=== PATIENT | male | born 2000 | race Caucasian/White ===

== ENCOUNTER 2025-07-20 14:19 | Emergency (ER) | payer SELFPAY ==
[2025-07-20 14:25] VITALS: BP 116/73; PULSE 74; RESP 18; TEMP 36.3; O2SAT 99; BMI 25.3
--- NOTE | 2025-07-20 14:28 | XR_ITS ---
FINAL REPORT CLINICAL HISTORY: hand injury/punched wall FINDINGS: RIGHT HAND Three views were obtained. There is no fracture or dislocation. The joint spaces appear normal. There is chronic appearing deformity of the fifth metacarpal, likely old injury. There is no acute soft tissue abnormality. Linear transverse density projects over the middle phalanx third finger, likely artifact on film but foreign body is not excluded. IMPRESSION: No acute process. Reviewed, Interpreted and Dictated by Safia Pham MD Transcribed by Ester Townsend Authenticated and [facility]
--- OUTSIDE RECORDS SUMMARY | 2025-07-20 14:35 | XMS_ITS | Clinical Summary ---
Author Organization [facility] Address [address] [place] [id number] Care Team Providers Care Aligner Name Role Phone Emmanuel Carlos MD Primary Care Provider [phone] Source Comments This information has been disclosed to you from confidential records protectedfrom disclosure by state law. You shall make no further disclosure of thisinformation without the specific, written, and informed release of theindividual to whom it pertains, or as otherwise permitted by law. A generalauthorization for the release of medical or other information is not sufficientfor the purposes of therelease of HIV test results or diagnoses. [id number] Allergies No known active allergies Medications ibuprofen (ADVIL,MOTRIN) 600 MG tablet Take 1 tablet (600 mg total) by mouth every 8 hours as needed for Pain. 30 tablet 11/25/2019 Active Social History Tobacco Use Types Packs/Day Years Used Date Smoking Tobacco: Never Smokeless Tobacco: Never Tobacco Cessation:Counseling Given: Not Answered Alcohol Use Standard Drinks/Week Comments Not Currently 0 (1 standard drink = 0.6 oz pur e alcohol) Sex and Gender Information Value Date Recorded Sex Assigned at Not on file Legal Sex Male 6:58 PM EST Gender Identity Not on file Sexual Orientation Not on file Last Filed Vital Signs Vital Sign Reading Time Taken Comments Blood Pressure 107/72 03/17/2025 8:16 AM EDT Pulse 83 03/17/2025 8:16 AM EDT Temperature 36.6 C (97.8 F) 03/17/2025 5:36 AM EDT Respiratory Rate 19 03/17/2025 8:16 AM EDT Oxygen Saturation 100% 03/17/2025 8:16 AM EDT Inhaled Oxygen Concentration 100% 03/17/2025 8 :16 AM EDT Weight 96.9 kg (213 lb 9.6 oz) 03/17/2025 5:36 A M EDT Height 185.4 cm (6' 1 ) 03/17/2025 5:36 AM EDT Body Mass Index 28.18 03/17/2025 5:36 AM EDT Plan of Treatment Health Maintenance Due Date Last Done Comments Hepatitis C Screening ([facility]) 1998 Immunization: HPV (1 - Male 3-dose series) 2013 Depression Screening 2016 HIV Screening 2016 Immunization: COVID-19 ( season) 2025 Immunization: Influenza ([facility]ryn[facility]arBioData) (#1) 07/09/2025 Immunization: DTaP/Tdap/Td (9 - Td or Tdap) 01/19/2032 01/18/2022, 06/05/2018, 07/02/2010, Additional history exists Immunization: Hepatitis B Completed 1998, 1998, 1998 Immunization: Meningococcal ACWY Aged Out 07/02/2010 No longer eligible based on patient's age to complete this topic Immunization: Pneumococcal Aged Out N o longer eligible based on patient's age to complete this topic Insurance LIABILITY Member Subscriber Plan / Payer (Ef fective 2025-Present) Name:Venu Miranda Relation to Subscriber:Self Name:Venu Miranda Payer ID:[id number] Group ID:Not on file Type:[employer]em[employer]agonal View Address: [address] [place] [address] BLUE ACCESS Care Teams Aligner Relationship Specialty Start Date End Date Emmanuel Carlos MD [address] [place], [place] [id number] PCP - General Family Medicine 11/25/19
--- OUTSIDE RECORDS SUMMARY | 2025-07-20 14:35 | XMS_ITS | Patient Health Record ---
Author [facility] Address [address] [id number] Care Team Providers Care Forensic Examiner Name Role Phone Clementine Dunn Primary Care Provider [phone] Reason For Referral No Information Plan Of Treatment No Information Insurance Providers Payer Name Payer Address Payer Phone Subscriber Number Group Number Insured Name Patient Relationship to Insured Coverage Start Date Coverage End Date [facility] [id number] Venu Miranda Self - patient is the insured Medical (General) History Surgical History Surgery Date(Month/Year)
[2025-07-20 15:22] VITALS: BP 115/69; PULSE 65; RESP 18; O2SAT 100
--- NOTE | 2025-07-20 15:55 | ED_ITS ---
<Statement entered by Mahin Balbuena DO - 07/21/25 16:29> I was consulted by the SO, and we discussed the complexity of problems being addressed. I approved the treatment and management plan for this patient's care in the emergency department, thus performing a substantive portion of the medical decision making. Mahin Balbuena DO Discharge Plan Disposition Patient Disposition: Home, Self-Care Prescriptions Prescriptions: New erythromycin 5 mg/gram (0.5 %) ointment 1 applic ophthalmic (eye) BID 7 Days Qty: 3.5 0RF Referrals Follow up/Referrals: Bernard Lujna DO [Staff Physician, Orthopedics] - See instructions Emmanuel Carlos MD [Primary Care Provider, Medical] - See instructions Activity Restrictions/Add. Instructions Additional Instructions/Restrictions: Today you were evaluated in the emergency department, the x-ray of your right hand does not show any acute fracture, however please call Dr. Lujan, listed above, for follow-up. Wear the splint until evaluated further. Please use erythromycin ointment in your eyes as directed. Follow-up with your PCP. Return to the ED for worsening of condition. Clinical Impressions Clinical Impression: Conjunctivitis, Hand pain, right Instructions Patient Instructions: Conjunctivitis Print Language Print Language: Greek Discharge ED Provider: Mahin Balbuena General Adult HPI General Chief complaint: Eye Problems Stated complaint: poss pink eye bilateral,AO 07/17/2025- R hand pain Time Seen by Provider: 07/20/25 14:52 Mode of Arrival: Ambulatory Source of Information: Patient Description of Symptoms (Recalled from ER Triage Doc. by RN): patient prsents to the ED today with complaints of pink eye in both eyes. patinte states there is drainage coming from both, they are itchy and very watery. patient also has a complaint of right hand pain after punching a wall on wednesday. History of Present Illness HPI narrative: patient is a 24-year-old male with no significant PMHx who presents to the ED for complaints of right hand pain since Wednesday and concern for pinkeye. Patient states that Wednesday night he punched a brick wall with his right hand, has had pain around 2nd and 3rd knuckle since then. He has full ROM however with pain, tenderness along the dorsal aspect of his right hand. No snuffbox tenderness. He states that he woke up this morning with bilateral eye matting, itching and irritation. Related Data Previous Rx's ?Medication ?Instructions ?Recorded erythromycin 5 mg/gram (0.5 %) eye 1 applic ophthalmic (eye) BID 7 07/20/25 ointment days #3.5 grams Allergies Allergy/AdvReac Type Severity Reaction Status Date / Time No Known Allergies Allergy Verified 11/06/20 11:34 [facility] Disclaimer: The information contained in this section may have been updated after the patient was seen, as this information can be updated by other users. Social History Smoking Status: Never smoker alcohol intake: never substance use type: denies use current occupational status: employed Travel in the last 8 weeks?: None household members: family housing: house Have you lived/traveled outside [place] in past 30 days?: No Contact w/someone who lives/traveled outside US past 30 days?: No Exposure to someone with infectious disease in past 14 days?: No Do you have a fever (greater than 100.4 F or 38 C)?: No Have you tested positive for COVID-19?: No Exposed to someone with COVID-19 in past 14 days?: No Do you have a sore throat?: No Do you have a cough?: No Do you have any weakness?: No Do you have any diarrhea?: No Are you experiencing any unusual bleeding?: No Do you have any muscle aches/pain?: No Do you have any abdominal pain?: No Are you experiencing loss of taste or smell?: No Other Medical History Have you received the Pneumonia Vaccine: No ROS Obtained: Yes Systems reviewed as appropriate & no additional complaints except as documented Physical Exam General General appearance: alert and in no apparent distress ENT ENT exam: Present normal exam Neck Neck exam: Present full ROM Respiratory Respiratory exam: Present normal lung sounds bilaterally Cardiovascular Cardiovascular exam: Present regular rate Extremities Exam Extremities exam: Present other (pain around 2nd and 3rd knuckle since then. He has full ROM however with pain, tenderness along the dorsal aspect of his right hand. No snuffbox tenderness. ) Neurological Exam Neurological exam: Present alert and oriented X3 Skin Skin exam: Present warm Medical Decision Making Medical Records Screening: Per USPSTF and CDC recommendations, given the prevalence of disease in our region, it is our hospital?s policy to screen for HIV and viral Hepatitis for all patients aged 18 and over and those with ongoing risk factors. Ovidio Inquiry Pt receiving controlled substance: No Vital Signs: 07/20/25 14:25 07/20/25 15:22 07/20/25 15:59 Temperature 97.4 F L 97.9 F Temperature Source Temporal Artery Scan Oral Pulse Rate 65 66 Pulse Rate [Right Radial] 74 Respiratory Rate 18 18 16 Blood Pressure 115/69 126/78 Blood Pressure [Right Arm] 116/73 Blood Pressure Mean [Right Arm] 87 Blood Pressure Source Automatic Cuff Blood Pressure Source [Right Arm] Automatic Cuff Blood Pressure Position Sitting Blood Pressure Position [Right Arm] Sitting 02 Sat by Pulse Oximetry 99 100 Oxygen Delivery Method Room Air Room Air Orders (Tests/Meds): ORDERS Category Date Time Status XR hand RT min 3V Stat Exams 07/20/25 14:28 Completed Medical Decision Narrative: In summary, patient is a 24-year-old male with no significant PMHx who presents to the ED for complaints of right hand pain since Wednesday and concern for pinkeye. Patient states that Wednesday night he punched a brick wall with his right hand, has had pain around 2nd and 3rd knuckle since then. He has full ROM however with pain, tenderness along the dorsal aspect of his right hand. No snuffbox tenderness. He states that he woke up this morning with bilateral eye matting, itching and irritation. Has not had any medication for symptomatic r elief prior to arrival. Denies fever, chills, visual changes, posterior neck pain, numbness or tingling of right hand. Upon initial evaluation patient is alert, oriented and cooperative. He has right hand swelling, scabs noted over his knuckles, tenderness along knuckles, worse on second third. Is able to open and close fist completely. X-rays obtained, no obvious fracture noted on my informal interpretation. Discussed with patient we will place him in a Velcro removable splint and he will need to follow-up with orthopedics. Advised him to take acetaminophen and ibuprofen [id number] for symptomatic relief. For his conjunctivitis I prescribed erythromycin ointment, discussed use. We discussed follow-up with PCP. Discussed return precautions to the ED. Critical Care Critical Care Time Critical Care Time: No
[2025-07-20 15:59] VITALS: BP 126/78; PULSE 66; RESP 16; TEMP 36.6; O2SAT 99
== END 2025-07-20 16:01 | disposition home or self-care (01) ==
PROVIDERS: Emergency Provider Student in an Organized Health Care Education/Training Program; PCP Family Medicine
DX: M79.641 Pain in right hand (principal); H10.9 Unspecified conjunctivitis
CPT/HCPCS: 73130; 99283